=== PATIENT | male | born 1935 | race Caucasian/White ===

== ENCOUNTER 2016-10-28 23:49 | Inpatient (IN) | payer MEDICARE, OTHER ==
--- NOTE | ~2016-10-28 | DS ---
Discharge Summary [address] [place]. [address] NAME: CURTIS ALVARENGA : 37 STATUS : DIS IN PAT#: [id number] AGE: 81 ADM/REG DATE : 10/29/16 MR#: [id number] REPORT SERV DATE: 11/02/16 DICTATED BY: SOFIA DONALD DATE: 11/02/16 REPORT STATUS : Draft TRANSCRIBED BY: MODL DATE: 11/02/16 ADMISSION DATE: 10/29/2016 DISCHARGE DATE: 11/02/2016 DIAGNOSES ON ADMISSION: 1. Gallstone pancreatitis with choledocholithiasis. 2. Obstructive sleep apnea. 3. Renal insufficiency. 4. Systemic inflammatory response syndrome. DIAGNOSES ON DISCHARGE: 1. Status post laparoscopic cholecystectomy, status post biliary stone extraction done on 10/31/[address] Vásquez. 2. Status post ERCP for biliary pancreatitis done on 10/30/[address] Faust. 3. Atrial fibrillation, rate controlled. 4. Minimally elevated troponin secondary to demand ischemia, resolved. No evidence of ST- elevation myocardial infarction. 5. Episodes of asymptomatic and nonsustained ventricular tachycardia. Seen by parachute taper, Dr. Abbasi. Recommended to continue beta-blockers. 6. Hypokalemia, replaced. 7. 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 Ejection fraction 45% to 50%. 8. Obstructive sleep apnea. 9. Hypertension. CONSULTANTS ON THE CASE: Cardiologists, Dr. Rdz and Dr. Abbasi. Senior Staff Specialized Employment, Dr. Henry Faust and General Surgery, Dr. Misha Vásquez. HISTORY OF PRESENT ILLNESS: Briefly, this is a very pleasant, 81-year-old male, who was admitted by my colleague, Dr. Trivedi with biliary pancreatitis and mild renal insufficiency. For details, see history of present illness dictated by Dr. Trivedi. HOSPITAL COURSE: Briefly, the patient had an ERCP done during this hospitalization and afterwards, he underwent a laparoscopic cholecystectomy. The patient went through the procedures uneventful. He had stone extraction, and he was doing well. Although he had a minimally elevated troponin, he did not have any symptoms of chest pain. He was seen by parachute taper, Dr. Rdz as well as by Dr. Abbasi, his regular parachute taper. He had an echocardiogram, which showed ejection fraction of 45% to 50%. Moderate tricuspid regurgitation. He was stable without any shortness of breath. Dr. Abbasi evaluated his atrial fibrillation, which was rate controlled and also his known episodes of nonsustained ventricular tachycardia. He recommends the patient to continue his home Coreg, and he recommended the patient to follow up with him in two to three weeks. Regarding his hypertension, Norvasc also was added to his home medication regimen. Also, it was recommended the patient to be on 325 mg of aspirin instead of 81, and Dr. Vásquez was okay for the patient to restart the aspirin. Overall, the patient is doing very well. He has also hypokalemia, which was replaced while inpatient. He was recommended to be on potassium Discharge Summary [address] [place]. [address] NAME: CURTIS ALVARENGA : 37 STATUS : DIS IN PAT#: [id number] AGE: 81 ADM/REG DATE : 10/29/16 MR#: [id number] REPORT SERV DATE: 11/02/16 DICTATED BY: SOFIA DONALD DATE: 11/02/16 REPORT STATUS : Draft TRANSCRIBED BY: JEN DATE: 11/02/16 supplementation at home. He needed to check his potassium levels at Dr. Bhatt' on Sunday11/06/2016. The patient was given a prescription for potassium chloride 20 mEq p.o. daily, magnesium oxide 400 mg daily, amlodipine [address] Vásquez gave him prescription of Zofran 4 mg q.6 hours p.r.n. for nausea and Lortab 5/325 q.4 hours p.r.n. for pain. The patient was also recommended to continue his home medications, which were Coreg 12.5 mg p.o. b.i.d., also lisinopril with hydrochlorothiazide 20/12.5 p.o. daily, Flomax 0.4 mg daily, niacin 250 mg a day, and 325 mg of aspirin. I spent 45 minutes on discharge. The patient was discharged in stable condition. He needs to follow up with Dr. Abbasi in two to three weeks, and he needs to follow up with Dr. Bhatt on Sunday to check his potassium level. MG/MODL Sofia Donald M.D. / [id number] CC: Amada Hilario M.D. C. Samuel Ledford, M.D.
--- NOTE | ~2016-10-28 | CN ---
Consultation Report [facility] [address] [place]. [address] NAME: CURTIS ALVARENGA : 37 STATUS : ADM IN [facility]#: [id number] AGE: 81 ADM/REG DATE : 10/29/16 MR#: [id number] REPORT SERV DATE: 10/31/16 DICTATED BY: JULIO VÁSQUEZ III DATE: 10/30/16 REPORT STATUS : Draft TRANSCRIBED BY: MODL DATE: 10/30/16 CONSULTATION DATE OF CONSULTATION: 10/30/2016 The patient is a 81-year-old white male, admitted with acute abdominal pain noted to be from pancreatitis with choledocholithiasis. The patient was admitted 10/29/2016. The patient underwent an ERCP today with sphincterotomy and extraction of one common bile duct stone. The patient's previously elevated lipase is dropping. The patient otherwise feeling much better. PAST MEDICAL HISTORY: The patient has had a history of hypertension, some dysrhythmias. He has history of sleep apnea and uses CPAP, which he has at his bedside. He has a history of arthritis and a right shoulder dislocation that was manipulated back in place in 2005. He has had BPH and history of skin cancers. He is followed by Dr. Hieu Bhatt. Denies chest pain with working, walking, or climbing stairs. 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 The patient has not smoked or drank alcohol. He does yard work and is quite active. PAST SURGICAL HISTORY: He has had a right knee replacement and jaw surgery. HOME MEDICATIONS: Include lisinopril, hydrochlorothiazide, Flomax, niacin, aspirin, and Coreg. FAMILY HISTORY: Noncontributory. REVIEW OF SYSTEMS: Consistent with a fairly stable weight, normal GI function, and good constitutional situation. PHYSICAL EXAMINATION: GENERAL: He is well developed, well nourished white male in no distress. HEENT: Showed nonicteric sclerae. NECK: Supple. HEART: Regular rate and rhythm with occasional extrasystole. LUNGS: Clear, slightly increased AP diameter. ABDOMEN: Soft, minimal tenderness over the epigastrium only to deep palpation. No organomegaly noted. EXTREMITIES: Grossly anatomic. IMPRESSION: The patient has a history of cholelithiasis with choledocholithiasis, which has been corrected by ERCP and stone extraction today. Consultation Report [address] [place]. [address] NAME: CURTIS ALVARENGA : 37 STATUS : ADM IN PAT#: [id number] AGE: 81 ADM/REG DATE : 10/29/16 MR#: [id number] REPORT SERV DATE: 10/31/16 DICTATED BY: JULIO VÁSQUEZ III DATE: 10/30/16 REPORT STATUS : Draft TRANSCRIBED BY: JEN DATE: 10/30/16 RECOMMENDATION: Will be for a laparoscopic cholecystectomy in the a.m. with risks being discussed with the patient and his including risk of conversion to open surgery, infection, bleeding, bowel injury, bile duct injury, and adhesions and hernia developments. General anesthetic risks were also discussed. The patient is recovering from his acute biliary pancreatitis and has expressed an understanding of plans and accepts risk for potential benefit. JEREMY/JEN Julio Vásquez III, M.D. / [id number] CC: Amada Hernandez MD
--- NOTE | ~2016-10-28 | HP ---
History And Physical [address] [place]. [address] NAME: CURTIS ALVARENGA : 37 STATUS : ADM IN [facility]#: [id number] AGE: 81 ADM/REG DATE : 10/29/16 MR#: [id number] REPORT SERV DATE: 10/29/16 DICTATED BY: CHARLOTTE CERVANTES DATE: 10/29/16 REPORT STATUS : Draft TRANSCRIBED BY: MODL DATE: 10/29/16 DATE OF ADMISSION: 10/29/2016 CHIEF COMPLAINT: A 81-year-old male presenting with severe abdominal pain and evidence of gallstone pancreatitis. HISTORY OF PRESENT ILLNESS: The patient's history was obtained through careful interview with patient and , coupled with review of [facility] medical records. The patient states that tonight after eating dinner within an hour he began to develop extreme abdominal pain, nausea, and vomiting. He describes the pain as in his epigastric area. He is very tender on the right upper quadrant at the portion of his abdomen, but the pain seems to radiate into his left shoulder blade and straight to his back, has a sharp quality, up to 9/10 severity. It is somewhat relieved by vomiting and exacerbated by the food intake. He has had subjective fevers and chills. No diarrhea. He has had recent constipation. No shortness of breath. No chest pain. No light headedness, although he does have chronic intermittent orthostatic symptoms. Not worsened by this illness. REVIEW OF SYSTEMS: Otherwise, a 14-point review of systems was obtained and was negative. PAST MEDICAL HISTORY: 1. Benign prostatic hypertrophy. 2. Hypertension. 3. Obstructive sleep apnea, on CPAP. 4. Premature atrial complexes. At one point, our records seem to indicate possible paroxysmal atrial fibrillation, but the patient and his were unaware of the diagnosis such as this and has never been on long-term anticoagulation. He also is on aspirin and Coreg. PAST SURGICAL HISTORY: 1. Skin cancer removal. 2. Right knee surgery. 3. Jaw surgery. ALLERGIES: NO KNOWN DRUG ALLERGIES. SOCIAL HISTORY: He is for 57 years to his . They live in [place], [place]. They have two children, two grandchildren, and one great grandchild. No tobacco abuse history. No alcohol use at all. 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 History And Physical [address] [place]. [address] NAME: CURTIS ALVARENGA : 37 STATUS : ADM IN PAT#: [id number] AGE: 81 ADM/REG DATE : 10/29/16 MR#: [id number] REPORT SERV DATE: 10/29/16 DICTATED BY: CHARLOTTE CERVANTES DATE: 10/29/16 REPORT STATUS : Draft TRANSCRIBED BY: JEN DATE: 10/29/16 FAMILY HISTORY: Mother at 100 years of age. Father at 76 years of age of a heart attack. Sister with Alzheimer's dementia. CURRENT MEDICATIONS: Include lisinopril/hydrochlorothiazide 20/12.5 p.o. daily, Flomax 0.4 mg p.o. daily, niacin 250 mg p.o. daily, aspirin 81 mg p.o. daily Coreg 12.5 mg p.o. b.i.d. PHYSICAL EXAMINATION: VITAL SIGNS: Temperature 97.8, pulse 94, blood pressure initially 201/105, but has responded well to pain medication into normal range, respiratory rate 22, O2 saturation 95% on room air. GENERAL: A pleasant, cooperative male, initially in quite a bit of distress secondary to abdominal pain and nausea, but much of his distress is relieved by IV narcotic pain management in the emergency department. HEENT: Pupils equal, round, and reactive to light. No conjunctival pallor. No scleral icterus. Nares are patent. Oropharynx is clear of obstruction. Mildly dry mucous membranes. NECK: Trachea midline. No thyromegaly. LYMPH: No cervical lymphadenopathy. No supraclavicular lymphadenopathy. No inguinal lymphadenopathy. RESPIRATORY: Clear to auscultation at bases. No wheezes, rales, or rhonchi. Normal respiratory effort. CARDIOVASCULAR: Regular rate and rhythm. No murmurs, rubs, or gallops. No extremity edema is appreciated. ABDOMEN: Significant right upper quadrant abdominal pain and epigastric abdominal pain with mild guarding, but no rebound effect. Nondistended. No hepatosplenomegaly. DERMATOLOGICAL: Warm and dry extremities. No pallor. No cyanosis. PSYCHIATRIC: Normal affect. He has good mood. Alert and oriented x3. LABORATORY DATA: White blood count 14.1, hemoglobin 15, hematocrit 45, platelets 161. Sodium 145, potassium 3.5, chloride 107, bicarb 26, BUN 25, creatinine 1.2, glucose 127, lipase 21,808. Troponin negative. Lactic acid 1.2. INR 1.1. AST 92, ALT 60, alkaline phosphatase 109, total bilirubin 1.7. STUDIES: 1. CT scan of the abdomen and pelvis shows severe acute pancreatitis changes and common bile duct gallstone causing dilatation. 2. EKG by my own evaluation shows first-degree AV block, left anterior fascicular block. ASSESSMENT AND PLAN: 1. Gall stone pancreatitis with choledocholithiasis. Obtain a Gastroenterology consult for ERCP. Discussed the case with Dr. Camacho Mario. Make n.p.o. Place on IV fluids and IV narcotic pain management and place on IV Zosyn. 2. Systemic inflammatory response syndrome. Place on IV Zosyn. 3. Obstructive sleep apnea. Continue CPAP. 4. Renal insufficiency. Place on IV fluids and monitor. History And Physical [address] [address] NAME: CURTIS ALVARENGA : 37 STATUS : ADM IN [facility]#: [id number] AGE: 81 ADM/REG DATE : 10/29/16 MR#: [id number] REPORT SERV DATE: 10/29/16 DICTATED BY: CHARLOTTE CERVANTES DATE: 10/29/16 REPORT STATUS : Draft TRANSCRIBED BY: JEN DATE: 10/29/16 KPL/JEN Charlotte Cervantes M.D. / [id number] CC: Amada Hernandez M.D. Sumeet Bhushan, M.D.
--- NOTE | ~2016-10-28 | CN ---
Consultation Report [facility] [address] [place]. [address] NAME: CURTIS BERRIOS : 37 STATUS : ADM IN PAT#: [id number] AGE: 81 ADM/REG DATE : 10/29/16 MR#: [id number] REPORT SERV DATE: 10/31/16 DICTATED BY: MATEUSZ RDZ DATE: 10/31/16 REPORT STATUS : Draft TRANSCRIBED BY: MODL DATE: 10/31/16 CONSULTATION DATE OF CONSULTATION: Mr. Curtis Berrios is a 81-year-old male, who is referred for PVCs and abnormal troponin. CVD PHYSICIAN: Madisyn Abbasi M.D. HISTORY OF PRESENT ILLNESS: Mr. Berrios is being treated for severe pancreatitis. He underwent ERCP and cholecystectomy. He was noted to have ventricular ectopy including a triplet and quadruplet. These were asymptomatic. Cardiac enzymes were obtained and demonstrated mild elevation. No acute change was noted on this EKG. No chest pain or chest discomfort was reported. REVIEW OF SYSTEMS: Negative for history of chest pain or chest discomfort. He does say if he hears he has had a skipped heartbeat. He has never fainted, passed out, or had sustained palpitations. He has no significant PND or lower extremity edema. PAST MEDICAL HISTORY: 1. Hypertension, longstanding. 2. Paroxysmal atrial fibrillation, poorly documented. 3. Obstructive sleep apnea with CPAP. SOCIAL HISTORY: He does not drink or smoke. He is moderately active. FAMILY HISTORY: Father had a myocardial infarction, at the age of 72. His sister had coronary artery disease, but no details are noted. PHYSICAL EXAMINATION: VITAL SIGNS: Blood pressure is 196/88, pulse is 63. GENERAL: He is alert, oriented, in no distress. He has normal respiratory effort. No murmur, rub, or gallop noted. ABDOMINAL: Examination is deferred. EXTREMITIES: Show no edema and warm. LABORATORY EVALUATION: Troponin is mildly elevated at 0.07. Renal insufficiency is noted, which is down, improving. Electrolytes are balanced. Hematocrit is stable at 41, white count is elevated at 14. ASSESSMENT: Probably a type B myocardial infarction. We will obtain echocardiogram for left ventricular function and wall motion abnormality. As long as he remains stable, we will not do further interventions at this time until more stable. PVCs remain asymptomatic and we will continue on beta-kavin. Hypertension noted. We will add Norvasc at this time. Consultation Report [facility] [address] [place]. [address] NAME: CURTIS BERRIOS : 37 STATUS : ADM IN PAT#: [id number] AGE: 81 ADM/REG DATE : 10/29/16 MR#: [id number] REPORT SERV DATE: 10/31/16 DICTATED BY: MATEUSZ RZD DATE: 10/31/16 REPORT STATUS : Draft TRANSCRIBED BY: JEN DATE: 10/31/16 JOHNNY/JEN Mateusz Rdz M.D. / [id number] CC: Amada Hilario M.D.
--- NOTE | ~2016-10-28 | OP ---
Record Of Operation [facility] [address] [place]. [address] NAME: CURTIS ALVARENGA : 37 STATUS : ADM IN PAT#: [id number] AGE: 81 ADM/REG DATE : 10/29/16 MR#: [id number] REPORT SERV DATE: 11/01/16 DICTATED BY: JULIO VÁSQUEZ III DATE: 10/31/16 REPORT STATUS : Draft TRANSCRIBED BY: MODL DATE: 10/31/16 DATE OF PROCEDURE: 10/31/2016 PREOPERATIVE DIAGNOSIS: Cholelithiasis in a patient who had a previous choledocholithiasis corrected one day prior by ERCP and sphincterotomy and stone extraction. The patient was known to have residual gallstones in the gallbladder. POSTOPERATIVE DIAGNOSIS: Cholelithiasis in a patient who had a previous choledocholithiasis corrected one day prior by ERCP and sphincterotomy and stone extraction. The patient was known to have residual gallstones in the gallbladder. FINDINGS: A very friable gallbladder filled with sludge, stones, and debris. The cystic duct was 4-5 mm in size. The common duct that was essentially normal with no filling defects and a normal appearing liver with preferential flow into the duodenum and flow up into the proximal common duct to the level of bifurcation with a normal diameter common duct. Good flow post sphincterotomy, stone extraction. PROCEDURE: A laparoscopic cholecystectomy with intraoperative cholangiography and block of the right costal margin using 30 mL 0.5% Marcaine with epinephrine. SURGEON: Julio Vásquez M.D., FACS. OUTSOLE SPLICER: Seth Vásquez RN, GRAVURE PRESS SET UP OPERATOR. ANESTHESIA: General with endotracheal tube supplemented with 0.5% Marcaine with epinephrine for a right costal margin block blocking the 6th and 7th intercostal nerves for postop pain management. Total of 30 mL instilled. PROCEDURE IN DETAIL: A time-out was called and all personnel in agreement with the planned surgery and indications with no disagreement. The patient was prepped and draped in routine fashion. Adequate general endotracheal anesthesia in the area of the abdomen approached through a small infraumbilical incision. An open trocar technique was used to place a 12 mm balloon port in the peritoneal cavity. The abdomen was insufflated to 15 mmHg pressure with carbon dioxide gas, and the 0 degree angled operative telescope used to inspect the abdomen. No gross abnormalities of the peritoneal cavity per se with normal appearing small bowel, normal appearing liver, and a fair amount of fatty omentum covering the anterior aspect of the bowel. There was no obvious other pathology on laparoscopic view. The abdomen was entered through the falciform ligament with a 10 mm trocar under video observation. One 5 mm trocar was placed under video observation at the right costal margin in the midclavicular line level. The gallbladder was grasped and immediately upon grasping it with an atraumatic grasper, the gallbladder tore and some bile leakage, which was controlled, suctioned, and contained, was noted with a very friable gallbladder. The gallbladder was retracted superiorly and anteriorly. Dissection carried out. Cystic duct was identified and skeletonized as was the cystic artery. Cystic artery was controlled with titanium clips, but not divided until Record Of Operation [address] [address] NAME: CURTIS ALVARENGA : 37 STATUS : ADM IN [facility]#: [id number] AGE: 81 ADM/REG DATE : 10/29/16 MR#: [id number] REPORT SERV DATE: 11/01/16 DICTATED BY: JULIO VÁSQUEZ III DATE: 10/31/16 REPORT STATUS : Draft TRANSCRIBED BY: MODL DATE: 10/31/16 after the cholangiogram. Cystic duct was controlled by placing a titanium clip on the infundibular side. A percutaneously introduced Arrow catheter was then placed through a small incision in the side of the 5 mm cystic duct and threaded in about 1 cm, and held in place with a partially collapsed titanium clip. Real-time C-arm intraoperative cholangiogram then obtained. Good flow into the duodenum was seen with preferential flow from the cystic duct noted and angulation changes were instituted to get a better view three dimensionally. The sphincterotomy site was fine without evidence of extravasation and good flow through it. There was little filling of the proximal biliary system due to preferential flow distally, but with the patient in Trendelenburg position, we did get reflux up into the hepatic radicle, to the level of the radicles. After this was done, the cystic duct catheter and clip were removed, and three titanium clips were placed on the cystic duct stump prior to its complete transection and transection of the cystic artery. Retrograde dissection of the gallbladder carried out with cautery current. Good hemostatic control achieved during the process. The gallbladder was then placed in the endobag and brought up through the right costal margin incision, and opened on the back table. Good hemostasis was achieved. Irrigation carried out and small pieces of Surgicel placed in the gallbladder fossa to help control any oozing. After this was done, all trocars were removed under video observation. The two larger trocar sites were closed with [id number] sutures of 0 Vicryl. Subcutaneous tissue was irrigated and closed with interrupted 3-0 Vicryls, and the skin closed with Dermabond. Marcaine was then injected for a right costal margin block and also infiltrated around three trocar sites. Band-Aids were applied and the procedure completed. ESTIMATED BLOOD LOSS: 10 mL. COMPLICATIONS: There were no complications other than the gallbladder tearing with the initial application of the atraumatic forceps, but no major complication was incurred. JEREMY/JEN Julio Vásquez III, M.D. / [id number] CC: Dyana Arzola M.D. Record Of Operation [address] [address] NAME: CURTIS ALVARENGA : 37 STATUS : ADM IN [facility]#: [id number] AGE: 81 ADM/REG DATE : 10/29/16 MR#: [id number] REPORT SERV DATE: 11/01/16 DICTATED BY: JULIO VÁSQUEZ III DATE: 10/31/16 REPORT STATUS : Draft TRANSCRIBED BY: JEN DATE: 10/31/16 Henry Faust MD
--- NOTE | ~2016-10-28 | EGD ---
EGD REPORT [facility] [address] [place] [id number] NAME: CURTIS BERRIOS : 39 STATUS : ADM IN PAT#: [id number] AGE: 81 ADM/REG DATE : 10/29/16 MR#: [id number] REPORT SERV DATE: 10/30/16 DICTATED BY: HENRY WATKINS DATE: 10/30/16 REPORT STATUS : Draft TRANSCRIBED BY: [facility] DATE: 10/30/16 Endoscopy Center Patient Name: Curtis Berrios Date of : 1935 Attending MD: HENRY WATKINS MD Procedure Date No Time: 10/30/2016 Procedure: ERCP Indications: Evaluation and possible treatment of bile duct stone(s), Gallstone associated acute pancreatitis Medicines: Monitored Anesthesia Care, General Anesthesia Complications: No immediate complications. Estimated blood loss: Minimal. Procedure: Pre-Anesthesia Assessment: - ASA Grade Assessment: III - A patient with severe systemic disease. After obtaining informed consent, the scope was passed under direct vision. Throughout the procedure, the patient's blood pressure, pulse, and oxygen saturations were monitored continuously. The TJF [id number] was introduced through the mouth, and advanced to the duodenum and used to inject contrast into the bile duct. The GIF H190 [id number] was introduced through the and advanced to the duodenum. The ERCP was accomplished without difficulty. Findings: The wood panel inspector film was normal. A standard esophagogastroduodenoscopy scope was used for the examination of the upper gastrointestinal tract. The scope was passed under direct vision through the upper GI tract. The upper GI tract was normal. After engaging the papilla, a 0.035-inch Jagwire was advanced into the common bile duct. The sphinctertome was then advanced over the wire and into the bile duct. Contrast was then injected and images were adequate for interpretation. The lower third of the main bile duct and gallbladder contained multiple stones mm. A 10 mm biliary sphincterotomy was made with a monofilament traction (standard) sphincterotome using ERBE electrocautery. There was no post-sphincterotomy bleeding. The biliary tree was swept with a 12 mm balloon starting at the bifurcation. One stone was removed. No stones remained. The endoscope was then withdrawn from the patient to conclude the case. Impression: - Choledocholithiasis was found. Complete removal was accomplished by biliary sphincterotomy and balloon extraction. EGD REPORT [address] [address] NAME: CURTIS BERRIOS : 39 STATUS : ADM IN [facility]#: [id number] AGE: 81 ADM/REG DATE : 10/29/16 MR#: [id number] REPORT SERV DATE: 10/30/16 DICTATED BY: HENRY WATKINS DATE: 10/30/16 REPORT STATUS : Draft TRANSCRIBED BY: [email or web address] [facility] DATE: 10/30/16 Recommendation: - Return patient to [facility] for ongoing care. - Clear liquid diet today. - Surgical consultation for consideration of cholecystectomy at the next available appointment. Procedure Code(s): --- Professional --- 92009, Endoscopic retrograde cholangiopancreatography (ERCP); with removal of calculi/debris from biliary/pancreatic duct(s) 70355, Endoscopic retrograde cholangiopancreatography (ERCP); with sphincterotomy/papillotomy Diagnosis Code(s): --- Professional --- K80.50, Calculus of bile duct without cholangitis or cholecystitis without obstruction K85.1, Biliary acute pancreatitis CPT copyright 2013 [employer]. All rights reserved. The codes documented in this report are preliminary and upon precision assembly inspector review may be revised to meet current compliance requirements. Henry Watkins MD HENRY WATKINS MD 10/30/2016 9:38 AM This report has been signed electronically. Number of Addenda: 0 Note Initiated On: 10/30/2016 7:05 AM Scope Withdrawal Time 0 hours 0 minutes 0 seconds [address] [address]
--- NOTE | ~2016-10-28 | CN ---
Consultation Report [facility] [address] [place]. [address] NAME: CURTIS ALVARENGA : 39 STATUS : ADM IN [facility]#: [id number] AGE: 81 ADM/REG DATE : 10/29/16 MR#: [id number] REPORT SERV DATE: 10/29/16 DICTATED BY: LANDON AVALOS DATE: 10/29/16 REPORT STATUS : Draft TRANSCRIBED BY: [employer] DATE: 10/29/16 GI CONSULTATION DATE OF CONSULTATION: 10/29/2016 REASON FOR CONSULTATION: Biliary pancreatitis. HISTORY OF PRESENT ILLNESS: The patient is a 81-year-old male, who presents with acute onset of severe epigastric abdominal pain associated with nausea and vomiting. As a result, he presented to the emergency room. This began approximately one hour after he had eaten dinner. The pain was radiating up into his left shoulder and straight into his back. In the emergency room, lab work noted elevated lipase and CT scan performed showed evidence of acute pancreatitis, the common bile duct was mildly dilated at 9 mm, in the pancreatic portion there was a 4 mm distal CBD stone at the level of the ampulla. There was some mild inflammatory changes noted in the second and third portion of the duodenum. He is also noted to have moderate cholelithiasis, but no cholecystitis. Since admission, he has been placed on IV fluids and IV analgesics. Currently, he feels much better. His abdominal pain is well controlled. He denies any nausea or vomiting. He has not had any fevers or chills. PAST MEDICAL HISTORY: Significant for BPH, hypertension, sleep apnea on CPAP, history of PACs. PAST SURGICAL HISTORY: Right knee replacement, jaw surgery. ALLERGIES: NONE. HOME MEDICATIONS: Include lisinopril/hydrochlorothiazide, Flomax, niacin, aspirin, Coreg. FAMILY HISTORY: No gastrointestinal malignancy. SOCIAL HISTORY: No tobacco or alcohol use. REVIEW OF SYSTEMS: As in HPI. Otherwise, currently negative for fevers, chills, myalgias. PHYSICAL EXAMINATION: GENERAL: Well-developed, well-nourished male, currently in no acute distress. HEENT: Atraumatic, normocephalic. Anicteric sclerae. NECK: Supple. No lymphadenopathy or JVD. CARDIOVASCULAR: Regular rate and rhythm without murmurs, rubs, gallops. LUNGS: Clear to auscultation bilaterally. ABDOMEN: Soft. Mild tenderness over the epigastrium. Positive bowel sounds. No hepatosplenomegaly. EXTREMITIES: No cyanosis, clubbing, or edema. Consultation Report [facility] [address] [place]. [address] NAME: CURTIS ALVARENGA : 39 STATUS : ADM IN [facility]#: [id number] AGE: 81 ADM/REG DATE : 10/29/16 MR#: [id number] REPORT SERV DATE: 10/29/16 DICTATED BY: LANDON AVALOS DATE: 10/29/16 REPORT STATUS : Draft TRANSCRIBED BY: MODL DATE: 10/29/16 LABORATORY DATA: White count is 14.1, hemoglobin is 15.6, platelet count is 161,000. Chemistry reveals a total bilirubin of 1.7, alkaline phosphatase of 109, ALT of 50, AST of 92, lipase is 21,808, BUN is 25, creatinine is 1.26, calcium is 8.8. IMPRESSION AND PLAN: Acute biliary pancreatitis with no evidence of cholangitis. As such, continue bowel rest, IV fluids, IV analgesics. We will plan for ERCP tomorrow. Although, it is possible that given the stone is small that there may be some spontaneous passage. LFTs are minimally elevated. SB/JEN Landon Avalos M.D. / [id number] CC: Michael Donovan M.D.
[~2016-10-28 23:49] MED LIST: ASAB PO; C5; CIMETIDINE400 MG PO; COREG12 PO; FLOMAX4 PO; MULTIVITAMI1 PO; PCET PO; SLO-NIACIN250 MG PO; VICODINTAB PO; ZESTORETIC PO
[2016-10-29 00:37] LABS: BASOPHILS 0.1 %; BASOPHILS ABSOLUTE 0.01 10/3/uL (0.0-0.16); EOSINOPHILS 0.2 %; EOSINOPHILS ABSOLUTE 0.03 10/3/uL (0.0-0.53); HEMATOCRIT 45.2 % (40.0-51.0); HEMOGLOBIN 15.6 g/dL (13.6-17.8); IMMATURE GRANULOCYTES 0.3 %; IMMATURE GRANULOCYTES ABSOLUTE 0.04 10/3/uL (0.0-0.11); LYMPHOCYTES 4.5 %; LYMPHOCYTES ABSOLUTE 0.64 10/3/uL (0.67-4.30); MEAN CORPUSCULAR HEMOGLOB 29.8 pg (26.0-34.0); MEAN PLATELET VOLUME 10.2 fL (9.2-13.0); MONOCYTES 7.9 %; MONOCYTES ABSOLUTE 1.12 10/3/uL (0.21-1.20); NEUTROPHILS ABSOLUTE 12.29 10/3/uL (2.02-8.40); RBC DISTRIBUTION WIDTH 14.2 % (12.0-16.0); RED CELL COUNT 5.24 10/6/uL (4.7-6.1)
[2016-10-29 00:41] LABS: ER CBC TAT 0 Hrs 10 Mins; MANUAL DIFF NO %; MEAN CORPUS HGB CONC 34.5 g/dL (32.0-36.0); MEAN CORPUSCULAR VOLUME 86.3 fL (80-100); PLATELET COUNT 161 10/3/uL (150-400); WHITE BLOOD CELLS 14.1 10/3/uL (4.5-10.5)
[2016-10-29 00:50] LABS: INTERNATIONAL NORMAL RATI 1.1 UNITS (-); PARTIAL THROMBO TIME 26.5 SEC (22.5-37.2)
[2016-10-29 00:56] LABS: A/G RATIO 1.1 (0.7-1.9); ALBUMIN 4.3 G/DL (3.5-5.0); CALCIUM, SERUM 8.8 MG/DL (8.5-10.4); CHLORIDE, SERUM 107 MMOL/L (96-112); CO2 (CARBON DIOXIDE) 26 MMOL/L (24-34); CREATININE 1.26 MG/DL (0.70-1.30); GFR AFRICAN AMERICAN 62 ML/MIN (>=60); GFR NON AFRICAN AMERICAN 54 ML/MIN (>=60); GLOBULIN 3.8 G/DL (2.5-4.1); POTASSIUM, SERUM 3.5 MMOL/L (3.5-5.3); SGOT(AST) 92 U/L (5-40); SGPT(ALT) 50 U/L (5-65); SODIUM, SERUM 145 MMOL/L (135-148); TOTAL BILIRUBIN 1.7 MG/DL (0-1.2); TOTAL PROTEIN 8.1 G/DL (6.0-8.5); TROPONIN I 0.02 NG/ML (<0.05)
[2016-10-29 00:57] LABS: BUN (BLOOD UREA NITROGEN) 25 MG/DL (6-23); GLUCOSE, SERUM 127 MG/DL (60-99)
[2016-10-29 00:58] LABS: ALKALINE PHOSPHATASE 109 U/L (45-117)
[2016-10-29 14:00] LABS: BASOPHILS 0.1 %; BASOPHILS ABSOLUTE 0.01 10/3/uL (0.0-0.16); EOSINOPHILS 0.1 %; EOSINOPHILS ABSOLUTE 0.01 10/3/uL (0.0-0.53); HEMATOCRIT 42.2 % (40.0-51.0); HEMOGLOBIN 14.4 g/dL (13.6-17.8); IMMATURE GRANULOCYTES 0.3 %; IMMATURE GRANULOCYTES ABSOLUTE 0.04 10/3/uL (0.0-0.11); LYMPHOCYTES 5.9 %; LYMPHOCYTES ABSOLUTE 0.91 10/3/uL (0.67-4.30); MANUAL DIFF NO %; MEAN CORPUS HGB CONC 34.1 g/dL (32.0-36.0); MEAN CORPUSCULAR HEMOGLOB 29.7 pg (26.0-34.0); MEAN PLATELET VOLUME 10.5 fL (9.2-13.0); MONOCYTES 5.3 %; MONOCYTES ABSOLUTE 0.82 10/3/uL (0.21-1.20); NEUTROPHILS 88.3 %; NEUTROPHILS ABSOLUTE 13.76 10/3/uL (2.02-8.40); PLATELET COUNT 162 10/3/uL (150-400); RBC DISTRIBUTION WIDTH 14.7 % (12.0-16.0); RED CELL COUNT 4.85 10/6/uL (4.7-6.1); WHITE BLOOD CELLS 15.6 10/3/uL (4.5-10.5)
[2016-10-29 14:22] LABS: ALBUMIN 3.6 G/DL (3.5-5.0); BUN (BLOOD UREA NITROGEN) 26 MG/DL (6-23); CALCIUM, SERUM 8.7 MG/DL (8.5-10.4); CHLORIDE, SERUM 110 MMOL/L (96-112); CO2 (CARBON DIOXIDE) 28 MMOL/L (24-34); CREATININE 1.44 MG/DL (0.70-1.30); GFR AFRICAN AMERICAN 53 ML/MIN (>=60); GFR NON AFRICAN AMERICAN 46 ML/MIN (>=60); GLOBULIN 3.6 G/DL (2.5-4.1); GLUCOSE, SERUM 118 MG/DL (60-99); SGPT(ALT) 40 U/L (5-65); SODIUM, SERUM 147 MMOL/L (135-148); TOTAL BILIRUBIN 1.8 MG/DL (0-1.2); TOTAL PROTEIN 7.2 G/DL (6.0-8.5)
[2016-10-29 14:23] LABS: ALKALINE PHOSPHATASE 80 U/L (45-117); POTASSIUM, SERUM 3.9 MMOL/L (3.5-5.3)
[2016-10-29 14:24] LABS: SGOT(AST) 52 U/L (5-40)
[2016-10-30 05:21] LABS: BASOPHILS 0.1 %; BASOPHILS ABSOLUTE 0.01 10/3/uL (0.0-0.16); EOSINOPHILS 1.1 %; EOSINOPHILS ABSOLUTE 0.12 10/3/uL (0.0-0.53); HEMOGLOBIN 13.6 g/dL (13.6-17.8); IMMATURE GRANULOCYTES 0.2 %; IMMATURE GRANULOCYTES ABSOLUTE 0.02 10/3/uL (0.0-0.11); LYMPHOCYTES 11.5 %; LYMPHOCYTES ABSOLUTE 1.29 10/3/uL (0.67-4.30); MEAN CORPUSCULAR HEMOGLOB 30.2 pg (26.0-34.0); MEAN CORPUSCULAR VOLUME 88.7 fL (80-100); MEAN PLATELET VOLUME 10.9 fL (9.2-13.0); MONOCYTES 5.8 %; MONOCYTES ABSOLUTE 0.65 10/3/uL (0.21-1.20); NEUTROPHILS 81.3 %; NEUTROPHILS ABSOLUTE 9.11 10/3/uL (2.02-8.40); PLATELET COUNT 140 10/3/uL (150-400); RBC DISTRIBUTION WIDTH 15.2 % (12.0-16.0); RED CELL COUNT 4.51 10/6/uL (4.7-6.1); WHITE BLOOD CELLS 11.2 10/3/uL (4.5-10.5)
[2016-10-30 05:35] LABS: ALBUMIN 3.3 G/DL (3.5-5.0); BUN (BLOOD UREA NITROGEN) 27 MG/DL (6-23); CALCIUM, SERUM 8.2 MG/DL (8.5-10.4); CHLORIDE, SERUM 112 MMOL/L (96-112); CO2 (CARBON DIOXIDE) 27 MMOL/L (24-34); CREATININE 1.28 MG/DL (0.70-1.30); GFR AFRICAN AMERICAN 61 ML/MIN (>=60); GFR NON AFRICAN AMERICAN 53 ML/MIN (>=60); GLOBULIN 3.3 G/DL (2.5-4.1); GLUCOSE, SERUM 95 MG/DL (60-99); POTASSIUM, SERUM 3.6 MMOL/L (3.5-5.3); SGPT(ALT) 30 U/L (5-65); SODIUM, SERUM 148 MMOL/L (135-148); TOTAL BILIRUBIN 1.6 MG/DL (0-1.2); TOTAL PROTEIN 6.6 G/DL (6.0-8.5)
[2016-10-30 05:40] LABS: ALKALINE PHOSPHATASE 67 U/L (45-117)
[2016-10-30 05:41] LABS: SGOT(AST) 36 U/L (5-40)
[2016-10-30 05:48] LABS: MANUAL DIFF NO %
[2016-10-31 02:27] LABS: BASOPHILS 0 %; EOSINOPHILS 0 %; HEMATOCRIT 41.3 % (40.0-51.0); HEMOGLOBIN 14.1 g/dL (13.6-17.8); IMMATURE GRANULOCYTES 0.1 %; IMMATURE GRANULOCYTES ABSOLUTE 0.02 10/3/uL (0.0-0.11); LYMPHOCYTES 5.5 %; LYMPHOCYTES ABSOLUTE 0.75 10/3/uL (0.67-4.30); MEAN CORPUS HGB CONC 34.1 g/dL (32.0-36.0); MEAN CORPUSCULAR HEMOGLOB 29.9 pg (26.0-34.0); MEAN CORPUSCULAR VOLUME 87.5 fL (80-100); MEAN PLATELET VOLUME 10.9 fL (9.2-13.0); MONOCYTES 3.8 %; MONOCYTES ABSOLUTE 0.52 10/3/uL (0.21-1.20); NEUTROPHILS 90.6 %; NEUTROPHILS ABSOLUTE 12.29 10/3/uL (2.02-8.40); PLATELET COUNT 140 10/3/uL (150-400); RBC DISTRIBUTION WIDTH 14.5 % (12.0-16.0); RED CELL COUNT 4.72 10/6/uL (4.7-6.1); WHITE BLOOD CELLS 13.6 10/3/uL (4.5-10.5)
[2016-10-31 02:28] LABS: MANUAL DIFF NO %
[2016-10-31 02:33] LABS: INTERNATIONAL NORMAL RATI 1.2 UNITS (-); PROTIME (NOT ORD) 15.2 SEC (12.0-14.5)
[2016-10-31 02:34] LABS: PARTIAL THROMBO TIME 31.4 SEC (22.5-37.2)
[2016-10-31 02:44] LABS: A/G RATIO 0.9 (0.7-1.9); ALBUMIN 3.4 G/DL (3.5-5.0); ALKALINE PHOSPHATASE 80 U/L (45-117); BUN (BLOOD UREA NITROGEN) 21 MG/DL (6-23); CALCIUM, SERUM 8.4 MG/DL (8.5-10.4); CHLORIDE, SERUM 109 MMOL/L (96-112); CO2 (CARBON DIOXIDE) 24 MMOL/L (24-34); CREATININE 1.19 MG/DL (0.70-1.30); GFR AFRICAN AMERICAN 67 ML/MIN (>=60); GFR NON AFRICAN AMERICAN 58 ML/MIN (>=60); GLUCOSE, SERUM 148 MG/DL (60-99); POTASSIUM, SERUM 3.8 MMOL/L (3.5-5.3); SGOT(AST) 31 U/L (5-40); SGPT(ALT) 28 U/L (5-65); SODIUM, SERUM 144 MMOL/L (135-148); TOTAL BILIRUBIN 1.2 MG/DL (0-1.2); TOTAL PROTEIN 7.4 G/DL (6.0-8.5)
[2016-10-31 02:45] LABS: TROPONIN I 0.06 NG/ML (<0.05)
[2016-10-31 19:32] LABS: POTASSIUM, SERUM 4.2 MMOL/L (3.5-5.3)
[2016-10-31 19:34] LABS: TROPONIN I 0.05 NG/ML (<0.05)
[2016-11-01 06:20] LABS: BASOPHILS 0.1 %; BASOPHILS ABSOLUTE 0.01 10/3/uL (0.0-0.16); EOSINOPHILS 0 %; HEMATOCRIT 39.5 % (40.0-51.0); HEMOGLOBIN 13.4 g/dL (13.6-17.8); IMMATURE GRANULOCYTES 0.2 %; IMMATURE GRANULOCYTES ABSOLUTE 0.03 10/3/uL (0.0-0.11); LYMPHOCYTES 5.5 %; LYMPHOCYTES ABSOLUTE 0.72 10/3/uL (0.67-4.30); MEAN CORPUS HGB CONC 33.9 g/dL (32.0-36.0); MEAN CORPUSCULAR HEMOGLOB 29.8 pg (26.0-34.0); MONOCYTES 6.7 %; MONOCYTES ABSOLUTE 0.89 10/3/uL (0.21-1.20); NEUTROPHILS 87.5 %; NEUTROPHILS ABSOLUTE 11.56 10/3/uL (2.02-8.40); PLATELET COUNT 135 10/3/uL (150-400); RED CELL COUNT 4.49 10/6/uL (4.7-6.1); WHITE BLOOD CELLS 13.2 10/3/uL (4.5-10.5)
[2016-11-01 06:30] LABS: MANUAL DIFF NO %
[2016-11-01 06:54] LABS: A/G RATIO 0.9 (0.7-1.9); ALBUMIN 3.3 G/DL (3.5-5.0); BUN (BLOOD UREA NITROGEN) 21 MG/DL (6-23); CALCIUM, SERUM 8.2 MG/DL (8.5-10.4); CHLORIDE, SERUM 107 MMOL/L (96-112); CO2 (CARBON DIOXIDE) 22 MMOL/L (24-34); CREATININE 0.98 MG/DL (0.70-1.30); GFR AFRICAN AMERICAN 85 ML/MIN (>=60); GFR NON AFRICAN AMERICAN 73 ML/MIN (>=60); GLOBULIN 3.5 G/DL (2.5-4.1); GLUCOSE, SERUM 122 MG/DL (60-99); SGOT(AST) 44 U/L (5-40); SGPT(ALT) 34 U/L (5-65); SODIUM, SERUM 140 MMOL/L (135-148); TOTAL PROTEIN 6.8 G/DL (6.0-8.5)
[2016-11-01 06:57] LABS: ALKALINE PHOSPHATASE 53 U/L (45-117); TOTAL BILIRUBIN 1.9 MG/DL (0-1.2)
[2016-11-02 06:59] LABS: BASOPHILS 0.1 %; BASOPHILS ABSOLUTE 0.01 10/3/uL (0.0-0.16); EOSINOPHILS 0.2 %; EOSINOPHILS ABSOLUTE 0.02 10/3/uL (0.0-0.53); HEMATOCRIT 40.5 % (40.0-51.0); HEMOGLOBIN 13.9 g/dL (13.6-17.8); IMMATURE GRANULOCYTES 0.3 %; IMMATURE GRANULOCYTES ABSOLUTE 0.03 10/3/uL (0.0-0.11); LYMPHOCYTES 8.5 %; LYMPHOCYTES ABSOLUTE 0.99 10/3/uL (0.67-4.30); MEAN CORPUS HGB CONC 34.3 g/dL (32.0-36.0); MEAN CORPUSCULAR HEMOGLOB 29.8 pg (26.0-34.0); MEAN CORPUSCULAR VOLUME 86.7 fL (80-100); MEAN PLATELET VOLUME 10.9 fL (9.2-13.0); MONOCYTES 11.2 %; NEUTROPHILS 79.7 %; NEUTROPHILS ABSOLUTE 9.29 10/3/uL (2.02-8.40); PLATELET COUNT 153 10/3/uL (150-400); RBC DISTRIBUTION WIDTH 14.8 % (12.0-16.0); RED CELL COUNT 4.67 10/6/uL (4.7-6.1); WHITE BLOOD CELLS 11.6 10/3/uL (4.5-10.5)
[2016-11-02 07:01] LABS: MANUAL DIFF NO %
[2016-11-02 07:10] LABS: BUN (BLOOD UREA NITROGEN) 20 MG/DL (6-23); CALCIUM, SERUM 8.2 MG/DL (8.5-10.4); CHLORIDE, SERUM 107 MMOL/L (96-112); CO2 (CARBON DIOXIDE) 24 MMOL/L (24-34); CREATININE 0.85 MG/DL (0.70-1.30); GFR AFRICAN AMERICAN 96 ML/MIN (>=60); GFR NON AFRICAN AMERICAN 83 ML/MIN (>=60); POTASSIUM, SERUM 3.3 MMOL/L (3.5-5.3); SODIUM, SERUM 142 MMOL/L (135-148)
[2016-11-02 07:11] LABS: GLUCOSE, SERUM 91 MG/DL (60-99)
[2016-11-02] MEDS ORDERED: ASA5GR PO (09:17)
[2016-11-02] MEDS ORDERED: NORV5 PO (09:18)
[2016-11-02] MEDS ORDERED: NORCO1 TA1 PO (09:18)
[2016-11-02] MEDS ORDERED: ZOFRAN4 PO (09:19)
[2016-11-02] MEDS ORDERED: MAGOX4 PO (09:19)
[2016-11-02] MEDS ORDERED: K-TABS10 MEQ PO (09:19)
== END 2016-11-02 12:02 | disposition home or self-care (01) | DRG 418 ==
LOC: ER 23:49 → 5SO 10-29 02:09
PROVIDERS: Hospitalist; Internal Medicine; Internal Medicine Gastroenterology; Nurse Practitioner Acute Care; Surgery
PROC: 0FC98ZZ Extirpation of Matter from Common Bile Duct, Via Natural or Artificial Opening Endoscopic (ICD-10-PCS; principal; 2016-10-30 08:53)
PROC: 0F798ZZ Dilation of Common Bile Duct, Via Natural or Artificial Opening Endoscopic (ICD-10-PCS; 2016-10-30 08:53)
PROC: 0FT44ZZ Resection of Gallbladder, Percutaneous Endoscopic Approach (ICD-10-PCS; 2016-10-31)
PROC: BF121ZZ Fluoroscopy of Gallbladder using Low Osmolar Contrast (ICD-10-PCS; 2016-10-31)
DX: K85.12 Biliary acute pancreatitis with infected necrosis (principal); K80.64 Calculus of gallbladder and bile duct with chronic cholecystitis without obstruction; I24.8 Other forms of acute ischemic heart disease; I50.22 Chronic systolic (congestive) heart failure; I10 Essential (primary) hypertension; N40.0 Benign prostatic hyperplasia without lower urinary tract symptoms; G47.33 Obstructive sleep apnea (adult) (pediatric); I49.1 Atrial premature depolarization; N28.9 Disorder of kidney and ureter, unspecified; Z82.49 Family history of ischemic heart disease and other diseases of the circulatory system; Z79.899 Other long term (current) drug therapy; Z79.82 Long term (current) use of aspirin; I48.0 Paroxysmal atrial fibrillation
CPT/HCPCS: 74176; 74300; 74330; 80048; 80053; 82150; 83605; 83690; 83735; 83880; 84132; 84443; 84484; 85025; 85610; 85730; 88304; 93005; 96374; 99285; A9270-GY; C1769; C8929; J0360; J0690; J1170; J2250; J2405; J2543; J2550; J2710; J3010; Q9957; Q9967